=== PATIENT | female | born 1940 | race Caucasian/White ===

== ENCOUNTER 2017-11-06 12:05 | Inpatient (IN) | payer BC ==
[2017-11-06] MEDS: NITROGLYCERIN (SL) 0.4 MG TAB SL (12:43)
[2017-11-06] MEDS: FUROSEMIDE 40 MG INJ IV (12:43)
[2017-11-06] MEDS: ASPIRIN 81 MG TAB PO (12:43)
[2017-11-06] MEDS: ENALAPRILAT 1.25 MG INJ IV (12:44)
[2017-11-06 12:51] LABS: ADD MAN DIFF? NO
[2017-11-06 12:54] LABS: WHITE BLOOD COUNT 6.9 10^3/ul (4.8-10.8)
[2017-11-06 12:54] LABS: BASOPHILS % 0.3 % (0.0-2.0); EOSINOPHILS % 0.6 % (0.0-7.0); HEMATOCRIT 36.4 % (37.0-47.0); HEMOGLOBIN 12.1 g/dl (12.0-16.0); LYMPHOCYTES # 1.6 10^3/ul (0.8-2.9); LYMPHOCYTES % 23.8 % (15.0-51.0); MEAN CORPUSCULAR HEMOGLOBIN 29.9 pg (29.0-33.0); MEAN CORPUSCULAR HGB CONC 33.2 g/dl (32.0-37.0); MEAN CORPUSCULAR VOLUME 89.9 fl (82.0-101.0); MONOCYTE # 0.5 10^3/ul (0.3-0.9); MONOCYTES % 7.7 % (0.0-11.0); NEUTROPHIL # 4.6 10^3/ul (1.6-7.5); NEUTROPHILS % 67.2 % (39.0-77.0); PLATELET COUNT 233 10^3/UL (140-415); RED BLOOD COUNT 4.05 10^6/ul (4.20-5.40); RED CELL DISTRIBUTION WIDTH 14.6 % (11.5-14.5)
[2017-11-06 13:14] LABS: ALANINE AMINOTRANSFERASE 23 IU/L (13-69); ALBUMIN 3.8 g/dl (3.3-4.9); ALBUMIN/GLOBULIN RATIO 1.26; ALKALINE PHOSPHATASE 70 IU/L (42-121); ANION GAP 17 (8-16); ASPARTATE AMINO TRANSFERASE 18 IU/L (15-46); BILIRUBIN,INDIRECT 0.1 mg/dl (0-1.1); BILIRUBIN,TOTAL 0.1 mg/dl (0.2-1.3); BLOOD UREA NITROGEN 17 mg/dl (7-20); CARBON DIOXIDE 22 mmol/L (21-31); CHLORIDE 113 mmol/L (97-110); CREATININE 0.98 mg/dl (0.44-1.00); GLUCOSE 160 mg/dl (70-220); LIPASE 62 U/L (23-300); POTASSIUM 3.6 mmol/L (3.5-5.1); SODIUM 148 mmol/L (135-144); TOTAL PROTEIN 6.8 g/dl (6.1-8.1)
[2017-11-06 13:26] LABS: B-TYPE NATRIURETIC PEPTIDE 2030 PG/ML (0-450)
[2017-11-06 13:27] LABS: TROPONIN-I < 0.012 ng/ml (0.00-0.12)
[2017-11-06] MEDS ORDERED: ACETAMINOPHEN 325 MG TAB PO (16:00)
[2017-11-06] MEDS ORDERED: LORAZEPAM 0.5 MG TAB PO (16:00)
[2017-11-06] MEDS ORDERED: ONDANSETRON 4 MG INJ IV (16:00)
[2017-11-06 17:44] LABS: CHOL/HDL RATIO 3.6 RATIO; HDL CHOLESTEROL 55 mg/dl (33-92); LDL CHOLESTEROL,CALCULATED 105 mg/dl; TRIGLYCERIDES 214 mg/dl (0-149)
[2017-11-06 17:44] LABS: CHOLESTEROL 203 mg/dl (100-200)
[2017-11-06 18:01] LABS: FREE T4 (FREE THYROXINE) 1.25 ng/dl (0.78-2.44)
[2017-11-07 08:41] LABS: ADD MAN DIFF? NO; BASOPHILS % 0.3 % (0.0-2.0); EOSINOPHILS # 0.1 10^3/ul (0.0-0.5); EOSINOPHILS % 2.2 % (0.0-7.0); LYMPHOCYTES # 1.9 10^3/ul (0.8-2.9); MEAN CORPUSCULAR HGB CONC 33.3 g/dl (32.0-37.0); MEAN PLATELET VOLUME 10.2 fl (7.4-10.4); MONOCYTE # 0.6 10^3/ul (0.3-0.9); MONOCYTES % 9.6 % (0.0-11.0); NEUTROPHIL # 3.4 10^3/ul (1.6-7.5); NEUTROPHILS % 56.7 % (39.0-77.0); PLATELET COUNT 224 10^3/UL (140-415); RED CELL DISTRIBUTION WIDTH 14.6 % (11.5-14.5)
[2017-11-07 08:47] LABS: ANION GAP 16 (8-16); BLOOD UREA NITROGEN 18 mg/dl (7-20); CARBON DIOXIDE 26 mmol/L (21-31); CHLORIDE 109 mmol/L (97-110); CREATININE 0.97 mg/dl (0.44-1.00); GLUCOSE 113 mg/dl (70-220); POTASSIUM 3.8 mmol/L (3.5-5.1); SODIUM 147 mmol/L (135-144)
[2017-11-07 09:22] LABS: HEMOGLOBIN A1C 5.6 % (0-5.9)
[2017-11-07] MEDS: FUROSEMIDE 40 MG INJ IV ×2 (09:24→15:37)
[2017-11-07] MEDS: FAMOTIDINE 20 MG TAB PO (10:57)
[2017-11-07] MEDS: COLCHICINE 0.6 MG TAB PO (10:57)
[2017-11-07 16:46] LABS: CREATINE KINASE 53 IU/L (23-200)
[2017-11-07 17:00] LABS: CK INDEX 0.7; CK-MB 0.35 ng/ml (0.0-2.4)
[2017-11-07 17:01] LABS: TROPONIN-I < 0.012 ng/ml (0.00-0.12)
[2017-11-08] MEDS: COLCHICINE 0.6 MG TAB PO (08:27)
[2017-11-08] MEDS: LISINOPRIL 5 MG TAB PO (08:31)
[2017-11-08] MEDS: FUROSEMIDE 20 MG TAB PO (08:31)
[2017-11-08] MEDS: FAMOTIDINE 20 MG TAB PO (08:31)
[2017-11-08 09:03] LABS: ADD MAN DIFF? NO
[2017-11-08 09:09] LABS: WHITE BLOOD COUNT 6.1 10^3/ul (4.8-10.8)
[2017-11-08 09:09] LABS: BASOPHILS % 0.3 % (0.0-2.0); EOSINOPHILS # 0.1 10^3/ul (0.0-0.5); EOSINOPHILS % 1.6 % (0.0-7.0); HEMATOCRIT 38.2 % (37.0-47.0); HEMOGLOBIN 12.6 g/dl (12.0-16.0); LYMPHOCYTES # 1.9 10^3/ul (0.8-2.9); LYMPHOCYTES % 31.6 % (15.0-51.0); MEAN CORPUSCULAR HEMOGLOBIN 29.5 pg (29.0-33.0); MEAN CORPUSCULAR VOLUME 89.5 fl (82.0-101.0); MEAN PLATELET VOLUME 10.3 fl (7.4-10.4); MONOCYTE # 0.8 10^3/ul (0.3-0.9); MONOCYTES % 13.1 % (0.0-11.0); NEUTROPHIL # 3.3 10^3/ul (1.6-7.5); NEUTROPHILS % 53.2 % (39.0-77.0); PLATELET COUNT 241 10^3/UL (140-415); RED BLOOD COUNT 4.27 10^6/ul (4.20-5.40); RED CELL DISTRIBUTION WIDTH 14.5 % (11.5-14.5)
[2017-11-08 09:35] LABS: ANION GAP 18 (8-16); BLOOD UREA NITROGEN 23 mg/dl (7-20); CALCIUM 9.4 mg/dl (8.4-10.2); CARBON DIOXIDE 28 mmol/L (21-31); CHLORIDE 106 mmol/L (97-110); CREATININE 1.17 mg/dl (0.44-1.00); GLUCOSE 128 mg/dl (70-220); POTASSIUM 3.5 mmol/L (3.5-5.1); SODIUM 148 mmol/L (135-144)
[2017-11-08 09:38] LABS: MAGNESIUM 2.1 mg/dl (1.7-2.5)
[2017-11-09 06:07] LABS: ADD MAN DIFF? NO
[2017-11-09 06:16] LABS: WHITE BLOOD COUNT 6.6 10^3/ul (4.8-10.8)
[2017-11-09 06:16] LABS: BASOPHILS % 0.3 % (0.0-2.0); EOSINOPHILS # 0.1 10^3/ul (0.0-0.5); EOSINOPHILS % 1.5 % (0.0-7.0); HEMATOCRIT 36.5 % (37.0-47.0); HEMOGLOBIN 12.1 g/dl (12.0-16.0); LYMPHOCYTES # 1.9 10^3/ul (0.8-2.9); LYMPHOCYTES % 29.3 % (15.0-51.0); MEAN CORPUSCULAR HEMOGLOBIN 29.5 pg (29.0-33.0); MEAN CORPUSCULAR HGB CONC 33.2 g/dl (32.0-37.0); MEAN PLATELET VOLUME 10.2 fl (7.4-10.4); MONOCYTE # 0.8 10^3/ul (0.3-0.9); MONOCYTES % 11.7 % (0.0-11.0); NEUTROPHIL # 3.7 10^3/ul (1.6-7.5); NEUTROPHILS % 56.9 % (39.0-77.0); PLATELET COUNT 230 10^3/UL (140-415); RED CELL DISTRIBUTION WIDTH 14.5 % (11.5-14.5)
[2017-11-09 06:30] LABS: ANION GAP 18 (8-16); BLOOD UREA NITROGEN 32 mg/dl (7-20); CALCIUM 9.1 mg/dl (8.4-10.2); CARBON DIOXIDE 24 mmol/L (21-31); CHLORIDE 106 mmol/L (97-110); CREATININE 1.87 mg/dl (0.44-1.00); GLUCOSE 125 mg/dl (70-220); POTASSIUM 3.3 mmol/L (3.5-5.1); SODIUM 145 mmol/L (135-144)
[2017-11-09] MEDS: FAMOTIDINE 20 MG TAB PO (09:00)
[2017-11-09] MEDS: FUROSEMIDE 20 MG TAB PO (09:16)
[2017-11-09] MEDS: LISINOPRIL 5 MG TAB PO (09:21)
[2017-11-09] MEDS: COLCHICINE 0.6 MG TAB PO (09:21)
[2017-11-09] MEDS: POTASSIUM CHLORIDE (SR) 20 MEQ TAB PO (12:22)
[2017-11-09] MEDS: ASPIRIN 81 MG TAB PO (12:22)
[2017-11-10] MEDS ORDERED: FUROSEMIDE 20 MG TAB PO (09:00)
== END 2017-11-09 16:10 | disposition home or self-care (01) | DRG 292 ==
LOC: TEL 15:22 → E/R 12:05 → TEL 14:07
DX: I50.23 Acute on chronic systolic (congestive) heart failure (principal); I42.9 Cardiomyopathy, unspecified; N17.9 Acute kidney failure, unspecified; I11.0 Hypertensive heart disease with heart failure; E66.9 Obesity, unspecified; Z68.31 Body mass index [BMI] 31.0-31.9, adult; Z91.14 Patient's other noncompliance with medication regimen
CPT/HCPCS: 36415; 71045; 80048; 80053; 80061; 82550; 82553; 82962; 83036; 83690; 83735; 83880; 84439; 84443; 84484; 85025; 93005; 93306; 96374; 96375; 99285-25